=== PATIENT | male | born 1990 | race Caucasian/White ===

== ENCOUNTER 2021-01-23 20:29 | Emergency (ER) | payer SELFPAY ==
[2021-01-23 20:57] VITALS: BP 144/90; PULSE 106
--- NOTE | 2021-01-23 22:04 | EDM.PDOC ---
ED HPI GENERAL MEDICAL PROBLEM - General Chief Complaint: Lower Extremity Injury/Pain Stated Complaint: FELL OF THE LATTER, RIGHT HEEL, ANKLE, KNEE Time Seen by Provider: 01/23/21 21:50 Source of Information: Reports: Patient History Limitations: Reports: No Limitations - History of Present Illness INITIAL COMMENTS - FREE TEXT/NARRATIVE: This 30 yo male patient reports to the ED due to a fall from 5-6 feet onto the ground. The patient reports he was working in the barn when a cow pushed the ladder out from under him. The patient reports he was handing from a fan for 1-2 minuted prior to falling. The patient reports pain to his right ankle up to his right knee, left foot and left hip due to the fall. The patient was able to walk after the fall. Onset: Today Duration: Minutes: Location: Reports: Lower Extremity, Left, Lower Extremity, Right Quality: Reports: Dull Severity: Mild Improves with: Reports: None Worsens with: Reports: None Context: Reports: Activity Associated Symptoms: Reports: No Other Symptoms Right Lower Leg Pain Score (Numeric/FACES): 6 - Related Data Allergies Allergy/AdvReac Type Severity Reaction Status Date / Time No Known Allergies Allergy Verified 01/23/21 20:54 Home Meds: Home Meds . [No Known Home Meds] 07/04/16 [History] Past Medical History - Past Health History Medical/Surgical History: Denies Medical/Surgical History - Past Surgical History Musculoskeletal Surgical History: Reports: Other (See Below) Other Musculoskeletal Surgeries/Procedures:: fracture left arm Social & Family History - Family History Family Medical History: No Pertinent Family History - Tobacco Use Tobacco Use Status *Q: Current Some Day Tobacco User Years of Tobacco use: 1 Packs/Tins Daily: 0.1 - Caffeine Use Caffeine Use: Reports: Coffee, Soda - Recreational Drug Use Recreational Drug Use: No Review of Systems - Review of Systems Review Of Systems: Comprehensive ROS is negative, except as noted in HPI. ED EXAM, GENERAL - Physical Exam Exam: See Below Exam Limited By: No Limitations General Appearance: Alert, WD/WN, Mild Distress Eye Exam: Bilateral Eye: EOMI, Normal Inspection, PERRL Ears: Normal External Exam, Normal Canal, Hearing Grossly Normal, Normal TMs Nose: Normal Inspection, Normal Mucosa, No Blood Throat/Mouth: Normal Inspection, Normal Lips, Normal Teeth, Normal Gums, Normal Oropharynx, Normal Voice, No Airway Compromise Head: Atraumatic, Normocephalic Neck: Normal Inspection, Supple, Non-Tender, Full Range of Motion Respiratory/Chest: No Respiratory Distress, Lungs Clear, Normal Breath Sounds, No Accessory Muscle Use, Chest Non-Tender Cardiovascular: Normal Peripheral Pulses, Regular Rate, Rhythm, No Edema, No Gallop, No JVD, No Murmur, No Rub GI/Abdominal: Normal Bowel Sounds, Soft, Non-Tender, No Organomegaly, No Distention, No Abnormal Bruit, No Mass (Male) Exam: Deferred Rectal (Males) Exam: Deferred Back Exam: Normal Inspection, Full Range of Motion, NT Extremities: Leg Pain (Right ankle to knee , left foot and left hip pain) Neurological: Alert, Oriented, CN II-XII Intact, Normal Cognition, Normal Gait, Normal Reflexes, No Motor/Sensory Deficits Psychiatric: Normal Affect, Normal Mood Skin Exam: Warm, Dry, Intact, Normal Color, No Rash Lymphatic: No Adenopathy Course - Vital Signs Last Recorded V/S: Last Vital Signs Temp 98.9 F 01/23/21 20:54 Pulse 106 H 01/23/21 20:54 Resp 16 01/23/21 20:54 BP 144/90 H 01/23/21 20:54 Pulse Ox 99 01/23/21 20:54 - Radiology Interpretation Free Text/Narrative:: [facility] Final Radiology Report Call: [phone] assistance Online chat: [email or web address] Name: ERI IVAN Age: 30Years M Date: 01/23/2021 SSN: -- : 1990 Study: CR KNEE MIN 4V RT Requesting Physician: Marko Bhatt Images: 4 Addl Studies: Provided Clinical History: fall Contrast: Contrast Medium: Contrast Amount: Contrast Method: CONFIDENTIALITY STATEMENT This report is intended only for use by the referring physician, and only in accordance with law. If you received this in error, call [phone]. Page 1 of 1 PROCEDURE INFORMATION: Exam: XR Right Knee Exam date and time: 01/23/2021 10:21 PM Age: 30 years old Clinical indication: Other: Fall/pain TECHNIQUE: Imaging protocol: XR Right knee. Views: 4 or more views. COMPARISON: CR Ankle Min 3V Rt 01/23/2021 10:16 PM FINDINGS: Bones/joints: There is normal osseous mineralization. There are no suspicious lytic or osteosclerotic lesions. Normal alignment. No fracture deformity. No dislocation. No callus formation. No periarticular osteophytes or erosions. No loose bodies. Soft tissues: No soft tissue calcifications, gas or foreign body. IMPRESSION: Normal knee radiography. Thank you for allowing us to participate in the care of your patient. Dictated and Authenticated by: Naveed Alves MD 01/23/2021 11:28 PM Central Time ( & [place]) [facility] Final Radiology Report Call: [phone] assistance Online chat: [email or web address] Name: ERI IVAN Age: 30Years M Date: 01/23/2021 SSN: -- : 1990 Study: CR FOOT COMP MIN 3V LT Requesting Physician: Marko Bhatt Images: 3 Addl Studies: Provided Clinical History: Fall from 5-6 feet Contrast: Contrast Medium: Contrast Amount: Contrast Method: CONFIDENTIALITY STATEMENT This report is intended only for use by the referring physician, and only in accordance with law. If you received this in error, call [phone]. Page 1 of 1 PROCEDURE INFORMATION: Exam: XR Left Foot Exam date and time: 01/23/2021 10:16 PM Age: 30 years old Clinical indication: Other: Fall/pain; Additional info: Fall from 5-6 feet TECHNIQUE: Imaging protocol: XR Left foot. Views: 3 or more views. COMPARISON: No relevant prior studies available. FINDINGS: Bones/joints: There is normal osseous alignment. There are no fractures. No callus formation is seen along the metatarsals or elsewhere in the foot. No osteosclerotic abnormalities. No lytic areas of osseous destruction. No periarticular osteophyte formation or erosions. Soft tissues: There are no soft tissue calcifications or radio-opaque foreign bodies. IMPRESSION: Negative foot radiography. No foot fracture or dislocation. Thank you for allowing us to participate in the care of your patient. Dictated and Authenticated by: Naveed Alves MD 01/23/2021 11:37 PM Central Time ( & [place]) [facility] Final Radiology Report Call: [phone] assistance Online chat: [email or web address] Name: ERI IVAN Age: 30Years M Date: 01/23/2021 SSN: -- : 1990 Study: CR ANKLE MIN 3V RT Requesting Physician: Marko Bhatt Images: 3 Addl Studies: Provided Clinical History: Fall from 5-6 feet Contrast: Contrast Medium: Contrast Amount: Contrast Method: CONFIDENTIALITY STATEMENT This report is intended only for use by the referring physician, and only in accordance with law. If you received this in error, call [phone]. Page 1 of 1 PROCEDURE INFORMATION: Exam: XR Right Ankle Exam date and time: 01/23/2021 10:16 PM Age: 30 years old Clinical indication: Other: Fall/pain; Patient HX: Previous FX 15 years ago; Additional info: Fall from 5-6 feet TECHNIQUE: Imaging protocol: XR Right ankle. Views: 3 or more views. COMPARISON: No relevant prior studies available. FINDINGS: Bones/joints: Old, healed fractures of distal tibial and fibular diaphyses. No acute ankle fracture or dislocation. Soft tissues: Normal. IMPRESSION: No acute ankle fracture or dislocation. Thank you for allowing us to participate in the care of your patient. Dictated and Authenticated by: Naveed Alves MD 01/23/2021 11:36 PM Central Time ([place] & [place]) [facility] Final Radiology Report Call: [phone] assistance Online chat: [email or web address] Name: ERI IVAN Age: 30Years M Date: 01/23/2021 SSN: -- : 1990 Study: CR HIP MIN 2V OR 3V W PELVIS LT Requesting Physician: Marko Bhatt Images: 2 Addl Studies: Provided Clinical History: Fall from 5-6 feet Contrast: Contrast Medium: Contrast Amount: Contrast Method: CONFIDENTIALITY STATEMENT This report is intended only for use by the referring physician, and only in accordance with law. If you received this in error, call [phone]. Page 1 of 1 PROCEDURE INFORMATION: Exam: XR Left Hip Exam date and time: 01/23/2021 10:13 PM Age: 30 years old Clinical indication: Other: Fall/pain; Additional info: Fall from 5-6 feet TECHNIQUE: Imaging protocol: XR Left hip. Views: 2 or 3 views hip with pelvis when performed. COMPARISON: No relevant prior studies available. FINDINGS: Bones/joints: There is normal osseous mineralization. There are no suspicious lytic or osteosclerotic lesions. Normal alignment. No fracture deformity. No dislocation. No callus formation. No periarticular osteophytes or erosions. No loose bodies. Soft tissues: No soft tissue calcifications, gas or foreign body. IMPRESSION: Normal left hip radiography. No fracture or dislocation. Thank you for allowing us to participate in the care of your patient. Dictated and Authenticated by: Naveed Alves MD 01/23/2021 11:29 PM Central Time ([place] & [place]) Departure - Departure Time of Disposition: 23:44 Disposition: Home, Self-Care 01 Condition: Fair Clinical Impression: Fall from ladder Qualifiers: Encounter type: initial encounter Qualified Code(s): W11.XXXA - Fall on and from ladder, initial encounter - Discharge Information *PRESCRIPTION DRUG MONITORING PROGRAM REVIEWED*: Not Applicable *COPY OF PRESCRIPTION DRUG MONITORING REPORT IN PATIENT JIGAR: Not Applicable Forms: ED Department Discharge Care Plan Goals: The patient was advised of the examination and x-ray results during the visit. The patient was encouraged to rest, ice and elevate the areas of concern. If the patient has any additional symptoms or concerns, the patient should either return to the emergency department or visit his primary care facility. Sepsis Event Note (ED) - Evaluation Sepsis Screening Result: No Definite Risk - Focused Exam Vital Signs: Vital Signs Temp Pulse Resp BP Pulse Ox 01/23/21 20:54 98.9 F 106 H 16 144/90 H 99
--- NOTE | 2021-01-23 23:29 | CR ---
PROCEDURE INFORMATION: Exam: XR Right Knee Exam date and time: 01/23/2021 10:21 PM Age: 30 years old Clinical indication: Other: Fall/pain TECHNIQUE: Imaging protocol: XR Right knee. Views: 4 or more views. COMPARISON: CR Ankle Min 3V Rt 01/23/2021 10:16 PM FINDINGS: Bones/joints: There is normal osseous mineralization. There are no suspicious lytic or osteosclerotic lesions. Normal alignment. No fracture deformity. No dislocation. No callus formation. No periarticular osteophytes or erosions. No loose bodies. Soft tissues: No soft tissue calcifications, gas or foreign body. IMPRESSION: Normal knee radiography.
--- NOTE | 2021-01-23 23:30 | CR ---
PROCEDURE INFORMATION: Exam: XR Left Hip Exam date and time: 01/23/2021 10:13 PM Age: 30 years old Clinical indication: Other: Fall/pain; Additional info: Fall from 5-6 feet TECHNIQUE: Imaging protocol: XR Left hip. Views: 2 or 3 views hip with pelvis when performed. COMPARISON: No relevant prior studies available. FINDINGS: Bones/joints: There is normal osseous mineralization. There are no suspicious lytic or osteosclerotic lesions. Normal alignment. No fracture deformity. No dislocation. No callus formation. No periarticular osteophytes or erosions. No loose bodies. Soft tissues: No soft tissue calcifications, gas or foreign body. IMPRESSION: Normal left hip radiography. No fracture or dislocation.
--- NOTE | 2021-01-23 23:36 | CR ---
PROCEDURE INFORMATION: Exam: XR Right Ankle Exam date and time: 01/23/2021 10:16 PM Age: 30 years old Clinical indication: Other: Fall/pain; Patient HX: Previous FX 15 years ago; Additional info: Fall from 5-6 feet TECHNIQUE: Imaging protocol: XR Right ankle. Views: 3 or more views. COMPARISON: No relevant prior studies available. FINDINGS: Bones/joints: Old, healed fractures of distal tibial and fibular diaphyses. No acute ankle fracture or dislocation. Soft tissues: Normal. IMPRESSION: No acute ankle fracture or dislocation.
--- NOTE | 2021-01-23 23:38 | CR ---
PROCEDURE INFORMATION: Exam: XR Left Foot Exam date and time: 01/23/2021 10:16 PM Age: 30 years old Clinical indication: Other: Fall/pain; Additional info: Fall from 5-6 feet TECHNIQUE: Imaging protocol: XR Left foot. Views: 3 or more views. COMPARISON: No relevant prior studies available. FINDINGS: Bones/joints: There is normal osseous alignment. There are no fractures. No callus formation is seen along the metatarsals or elsewhere in the foot. No osteosclerotic abnormalities. No lytic areas of osseous destruction. No periarticular osteophyte formation or erosions. Soft tissues: There are no soft tissue calcifications or radio-opaque foreign bodies. IMPRESSION: Negative foot radiography. No foot fracture or dislocation.
== END 2021-01-23 23:58 | disposition home or self-care (01) ==
LOC: DL.ED 20:29
DX: M25.571 Pain in right ankle and joints of right foot (principal); M25.561 Pain in right knee; M79.672 Pain in left foot; M25.552 Pain in left hip; Z72.0 Tobacco use; W11.XXXA Fall on and from ladder, initial encounter; Y92.71 Barn as the place of occurrence of the external cause
CPT/HCPCS: 73564-RT; 73610-RT; 73630-LT; 99283; 99283-25